=== PATIENT | female | born 2000 | race Caucasian/White ===

== ENCOUNTER 2023-12-27 00:13 | Emergency (ER) | payer BC ==
--- NOTE | 2023-12-27 01:22 | ERPHSYRPT ---
- History of Present Illness Time Seen by Provider: 12/27/23 01:08 Historian: patient, other (Friend) Exam Limitations: no limitations Physician History: The patient had severe cramping pain. More left-sided lower pain. She felt like something was piercing her fallopian tubes. The patient does not have periods. She is not having vaginal bleeding. She has an IUD. She denies history of endometriosis ovarian cyst. The patient had sharp stabbing pelvic pain. She denies any nausea vomiting. She has had symptoms like these on and off for several weeks to months. This was the worst however it is now resolved. Previous symptoms: same symptoms as today Allergies/Adverse Reactions: watermelon Allergy (Verified 12/27/23 01:19) Sore Throat Home Medications: Fluoxetine HCl [Prozac] 40 mg PO DAILY 12/27/23 [History] - Review of Systems Constitutional: No Fever, No Chills Eyes: No Symptoms Ears, Nose, & Throat: No Symptoms Respiratory: No Cough, No Dyspnea Cardiac: No Chest Pain, No Edema, No Syncope Abdominal/Gastrointestinal: Abdominal Pain, No Nausea, No Vomiting, No Diarrhea Genitourinary Symptoms: No Dysuria, No Urinary Retention, No , No Vaginal Bleeding, No Vaginal Discharge, No Vaginal Itching Musculoskeletal: No Symptoms, No Back Pain, No Neck Pain Skin: No Rash Neurological: No Dizziness, No Focal Weakness, No Sensory Changes Psychological: No Symptoms Endocrine: No Symptoms All Other Systems: Reviewed and Negative - Past Medical History Neurological History: No Pertinent History ENT History: No Pertinent History Cardiac History: No Pertinent History Respiratory History: No Pertinent History Endocrine Medical History: No Pertinent History Musculoskeletal History: No Pertinent History GI Medical History: No Pertinent History History: No Pertinent History Psycho-Social History: Anxiety Female Reproductive Disorders: No Pertinent History - Past Surgical History Past Surgical History: No - Social History Smoking Status: Unknown if ever smoked (Vapes/uses nicotine) Exposure to second hand smoke: No Alcohol Use: Socially Drug Use: none Patient Lives Alone: No Significant Family History: no pertinent family hx - Female History Hx Last Menstrual Period: Patient has an IUD Hx Now: No - Nursing Vital Signs Nursing Vital Signs: Initial Vital Signs Temperature 98.3 F 12/27/23 01:14 Pulse Rate 75 12/27/23 01:14 Respiratory Rate 18 12/27/23 01:14 Blood Pressure 115/68 12/27/23 01:14 O2 Sat by Pulse Oximetry 99 12/27/23 01:14 Pain Scale Pain Intensity 0 - Physical Exam General Appearance: no apparent distress, alert Eye Exam: PERRL/EOMI, eyes nml inspection Ears, Nose, Throat Exam: normal ENT inspection, pharynx normal, moist mucous membranes Neck Exam: normal inspection, non-tender, supple, full range of motion Respiratory Exam: normal breath sounds, lungs clear, No respiratory distress Cardiovascular Exam: regular rate/rhythm, normal heart sounds Gastrointestinal/Abdomen Exam: soft, tenderness (Mild left lower quadrant tend erness no rebound or guarding), No mass, No pulsatile mass, No rebound, No hernia, No hepatomegaly Pelvic Exam: deferred (Patient declined) Back Exam: normal inspection, normal range of motion, No CVA tenderness, No vertebral tenderness Extremity Exam: normal inspection, normal range of motion, pelvis stable Neurologic Exam: alert, oriented x 3, cooperative, normal mood/affect, nml cerebellar function, sensation nml, No motor deficits Skin Exam: normal color, warm, dry SpO2 Interpretation: normal O2 Delivery: Room Air - Course Nursing assessment & vital signs reviewed: Yes Ordered Tests: Active Orders 24 hr Category Date Time Status HCG QUALITATIVE, URINE Stat Lab 12/27/23 01:15 Completed UA W/RFX UR CULTURE Stat Lab 12/27/23 01:18 Completed Lab/Rad Data: Laboratory Results 12/27/23 12/27/23 Range/Units 01:18 01:15 Urine Color Yellow (Yellow) Urine Appearance Clear (Clear) Urine pH 6.5 (4.6-8.0) Ur Specific [place] <=1.005 (1.005-1.030) Urine Protein Negative (Negative) Urine Glucose (UA) Negative (Negative) mg/dL Urine Ketones Negative (Negative) Urine Blood Negative (Negative) Urine Nitrite Negative (Negative) Urine Bilirubin Negative (Negative) Urine Urobilinogen 0.2 (0.2) mg/dL Ur Leukocyte Esterase Negative (Negative) U Hyaline Cast (Auto) NONE SEEN (0-2) /LPF Urine Microscopic RBC 0-2 (0-5) /HPF Urine Microscopic WBC 0-2 (0-5) /HPF Ur Epithelial Cells Rare (None Seen) /HPF Urine Bacteria None Seen (None Seen) /HPF Urine Culture Reflexed NO (NO) Urine HCG, Qual NEGATIVE (NEGATIVE) Presumed negative . Will be followed up with the lab. - Progress Progress Note: 12/27/23 01:20 The patient wanted to leave. I convince her to stay with just the urine. She declined blood work and CT scan. I did discuss with her endometriosis and ovarian cyst. This does not seem to be ovarian torsion as the patient is not having pain currently. I could not justify calling in the ct mri technologist at this hour. The patient was willing to follow-up with her primary and get an outpatient ultrasound. She was welcome to return at any point. Urine analysis did not show any signs of infection and/or . At this point I feel the patient stable for symptomatic treatment with Tylenol and ibuprofen. She declined a Toradol shot. The patient at this point did not want to be in the emergency room. I do not feel there is any signs of an acute surgical [employer] or obstetric emergency. The patient will require further workup which can be done as an outpatient. This could be a nonemergent cause of pelvic pain such as ovarian cyst and or endometriosis. This does not appear to be a huge hemorrhagic cyst and/or torsion due to the fact that this happened multiple times. She is not in severe pain. She actually feels better. 12/27/23 01:47 UA did not show any signs of infection. Patient will be released with the test is negative. - Departure Departure Disposition: Home Clinical Impression: Acute pelvic pain, female, Acute abdominal pain in left lower quadrant Condition: Stable Critical Care Time: No Referrals: JAMISON CONDE MD [Primary Care Provider] - Follow up/PCP as directed Instructions: Endometriosis, Severe Abdominal Pain, Adult (DC), Pelvic Pain (DC) Additional Instructions: Thank you for choosing our Emergency Department for your healthcare! Please take your medicines prescribed as directed and be assured that you follow up with the physician provided or your PCP in the next 1-2 days to assure you are improving. All medical problems cannot be reasonably diagnosed in your ED visit today. Return for any changes or concerns, including if your condition does not improve or you are unable to obtain follow-up. Some final results, including radiology reports, do not return the same day, but are available on the patient portal or can be obtained through your PCP. Follow-up with your primary care doctor or [facility] for further evaluation of possible pelvic ultrasound. Use Tylenol Motrin for pain. Return for worsening symptoms.
[2023-12-27 01:30] LABS: Appearance Clear (Clear); Bacteria None Seen /HPF (None Seen); Bilirubin Negative (Negative); Blood Negative (Negative); Epithelial Cells Rare /HPF (None Seen); Glucose, Urine Negative (Negative); Hyaline Casts NONE SEEN /LPF (0-2); Ketones Negative (Negative); Leukocyte Esterase Negative (Negative); Nitrite Negative (Negative); Ph 6.5 (4.6-8.0); Protein,Urine Dip Negative (Negative); RBC 0-2 /HPF (0-5); Specific Gravity <=1.005 (1.005-1.030); Urobilinogen 0.2 mg/dL (0.2); WBC 0-2 /HPF (0-5)
[2023-12-27 01:31] LABS: ADD URINE CULTURE? NO (NO)
[2023-12-27 01:38] VITALS: RESP 18; TEMP 98.3
[2023-12-27 01:53] LABS: HCG URINE TEST NEGATIVE (NEGATIVE)
[2023-12-27 02:06] VITALS: BP 120/67
[2023-12-27 02:11] VITALS: PULSE 77; O2SAT 98
== END 2023-12-27 02:11 | disposition home or self-care (01) ==
LOC: ED 00:13
DX: R10.2 Pelvic and perineal pain (principal); R10.32 Left lower quadrant pain; Z79.899 Other long term (current) drug therapy
CPT/HCPCS: 81001; 81025; 99282